=== PATIENT | male | born 1980 | race Caucasian/White ===

== ENCOUNTER 2021-03-20 21:42 | Emergency (ER) | payer OTHER ==
[~2021-03-20] VITALS: Ht 185.4 cm; Wt 122.5 kg
[~2021-03-20 21:42] MED LIST: ALBIPROI INH; CEPH500 PO; HYDACE5 PO; HYDGUAL120 PO; SULTRIDS PO
[2021-03-21] MEDS ORDERED: AMOCLA875 PO (01:36)
[2021-03-21 02:19] LABS: Source, Urine Peds U Bag
[2021-03-21 02:26] LABS: Bilirubin, Urine Neg (Neg); Blood, Urine 5+ (Neg); Glucose Qualitative, Urine Neg (Neg); Ketones, Urine 1+ (Neg); Leukocyte Esterase, Urine 1+ (Neg); Nitrite, Urine Neg (Neg); Protein, Urine 3+ (Neg); Urobilinogen, Urine NORM (Normal)
[2021-03-21 02:35] LABS: Appearance, Urine Hazy (Clear); Color, Urine Amber (P-Yellow)
[2021-03-21 02:36] LABS: Amorphous Light (0-Heavy); Bacteria Few /hpf; Mucus Light (0-Heavy); Red Blood Cells, Urine TNTC /hpf (0-2); Squamous Epithelial Cells Not Seen /hpf (Few)
== END 2021-03-21 02:11 | disposition home or self-care (01) ==
LOC: ER 21:42
PROVIDERS: Emergency Medicine
DX: S31.25XA Open bite of penis, initial encounter (principal); F17.210 Nicotine dependence, cigarettes, uncomplicated; W54.0XXA Bitten by dog, initial encounter
CPT/HCPCS: 81001; 87077; 87086; 87186; 90471; 90714; 99283-25; A9270

== ENCOUNTER 2023-11-18 04:53 | Observation (INO) | payer OTHER ==
[~2023-11-18] VITALS: Ht 190.5 cm; Wt 138.4 kg
[~2023-11-18 04:53] MED LIST changes: +AMOCLA875 PO
[2023-11-18 05:30] LABS: BASOPHILS ABSOLUTE AUTO 0.08 K/mm3 (0.00-0.23); BASOPHILS PERCENT AUTO 1 % (0-2); EOSINOPHILS ABSOLUTE AUTO 0.26 K/mm3 (0.00-0.68); EOSINOPHILS PERCENT AUTO 2 % (0-6); Hematocrit 50.7 % (37.0-53.0); IMMATURE GRAN ABSOLUTE AUTO 0.09 K/mm3 (0.00-0.10); IMMATURE GRAN PERCENT AUTO 1 % (0-1); LYMPHOCYTES ABSOLUTE AUTO 2.24 K/mm3 (0.84-5.20); LYMPHOCYTES PERCENT AUTO 20 % (21-46); MONOCYTES ABSOLUTE AUTO 0.87 K/mm3 (0.16-1.47); MONOCYTES PERCENT AUTO 8 % (4-13); Mean Corpuscular HGB 30.4 pg (26.0-34.0); Mean Corpuscular HGB Conc 33.5 g/dL (31.5-36.5); Mean Corpuscular Volume 91 fL (80-100); Mean Platelet Volume 9.3 fL (9.1-12.4); NEUTROPHILS ABSOLUTE AUTO 7.79 K/mm3 (1.96-9.15); NEUTROPHILS PERCENT AUTO 69 % (41-73); Platelet Count 269 K/mm3 (150-400); RDW Coefficient Variation 12.9 % (11.7-14.2); RDW Standard Deviation 42.6 fL (35.1-46.3); Red Blood Cell Count 5.59 M/mm3 (4.30-5.90); White Blood Cell Count 11.33 K/mm3 (4.00-11.30)
[2023-11-18] MEDS ORDERED: Acetaminophen 325 MG TABLET PO PRN (05:40)
[2023-11-18] MEDS ORDERED: NS 1,000 ML IV SCH (05:40)
[2023-11-18] MEDS ORDERED: FLU VACC TS2024-25(6MOS UP)/PF 45 MCG/0.5 ML SYRINGE IM ONE (05:45)
[2023-11-18] MEDS ORDERED: Acetaminophen 650 MG Supp PR PRN (05:45)
[2023-11-18] MEDS ORDERED: Ondansetron HCl 2 MG / ML 2ML Vial IV PRN (05:45)
[2023-11-18] MEDS ORDERED: Midazolam HCl 1MG / ML 2ML Vial IV SCH (05:50)
[2023-11-18] MEDS ORDERED: CATAPRES0.1 MG PO (06:15)
[2023-11-18] MEDS ORDERED: METOPROLOL TART5010 PO (06:16)
[2023-11-18 06:56] VITALS: BP 151/126
--- NOTE | 2023-11-18 07:39 | NUR ---
PT CAME UP TO FLOOR AND PER REPORT FROM ED PT HAD 190 ML CONTRAST INFILTRATION IN LAC DURING CTA SCAN. SITE IS HARD AND SWOLLEN, WARM COMPRESS IN PLACE. PHARMACY CONSULTED FOR FURHTER INSTRUCTIONS AND SAID TO ELEVATE AND USE WARM COMPRESS AND MASSAGE SITE, THEN IF STINGING OCCURS APPLY COLD COMPRESS. HOSPITALIST NOTIFIED AND AGREES WITH PHARYMACY PLAN.
--- NOTE | 2023-11-18 08:07 | NUR ---
DR ROLDAN TO BEDSIDE. ORDERS TO CONTINUE METOPROLOL TARTRATE 50MG BID. VORB.
[2023-11-18] MEDS ORDERED: Aspirin 81 MG Chew PO SCH (09:00)
[2023-11-18] MEDS ORDERED: Atorvastatin 40 MG Tab PO SCH (09:00)
[2023-11-18] MEDS ORDERED: Metoprolol Tartrate 50 MG Tab PO SCH (09:00)
[2023-11-18 09:50] VITALS: BP 149/113
--- NOTE | 2023-11-18 11:32 | NUR ---
PATIENT HAVING ANXIETY, TACHYCARDIA AND TACHYPNEA AFTER ECHO. EDUCATION PROVIDED REGARDING DEEP, MINDFUL BREATHING. GIVEN FAN AND COOL, WET WASHCLOTH TO APPLY TO FACE.
[2023-11-18 11:45] VITALS: BP 148/112
--- NOTE | 2023-11-18 12:49 | NUR ---
PATIENT TAKING TELE OFF TO TAKE SHOWER WITH ASSISTING AT SIDE.
[2023-11-18 15:24] VITALS: BP 147/112
[2023-11-18 18:09] LABS: U Amphetamine Screen DETECTED; U Barbituate Screen Not Detected; U Benzodiazapine Screen Not Detected; U Buprenorphine Screen Not Detected; U Cannabinoids Screen Not Detected; U Cocaine Screen Not Detected; U Methadone Screen Not Detected; U Methamphetamine Screen DETECTED; U Opiates Screen Not Detected; U Oxycodone Screen Not Detected; U Phencyclidine Screen Not Detected
[2023-11-18 19:43] VITALS: BP 153/113
[2023-11-18] MEDS ORDERED: Lidocaine 4% 1 Patch TOP ONE (20:30)
[2023-11-18] MEDS ORDERED: Nicotine 21 MG PATCH TOP ONE (20:30)
--- NOTE | 2023-11-18 20:48 | NUR ---
DAY SHIFT SUMMARY: A&Ox4. PLEASANT AND COOPERATIVE WITH CARE. CALLS APPROPRIATELY AND IS ABLE TO ADVOCATE NEEDS EFFECTIVELY. AT BEDSIDE MOST OF DAY. PATIENT VERY ANXIOUS, OFTEN CRYING, HE WANTS TO GO HOME. LONG DISCUSSION REGARDING IMPORTANCE OF HAVING CARDIAC ISSUES ADDRESSED THEY ARE QUITE SEVERE. ECHO YIELDED EF OF 20-25% HYPERTENSIVE WITH SBP >100 AND TACHY WITH HR HIGH 130s TODAY. CARDIAC CONSULT PLACED AND WILL CONSULT TONIGHT OR TOMORROW. BNP ELEVATED. LEFT BICEP EDEMATOUS SECONDARY TO CONTRAST INFILTRATION DURING CT TODAY. BED IN LOWEST POSITION. CALL LIGHT WITHIN REACH. REPORT TO ONCOMING RN.
[2023-11-18] MEDS ORDERED: Ibuprofen 400 MG Tab PO SCH (22:00)
[2023-11-18] MEDS ORDERED: Ibuprofen 400 MG Tab PO PRN (22:40)
--- NOTE | 2023-11-19 03:17 | NUR ---
CALLED HOSPITALIST INFORMED HIM OF ELEVATED D. DIMER. HE STATES HE WILL LOOK INTO THE PATIENT'S CHARTS.
--- NOTE | 2023-11-19 04:06 | NUR ---
SHIFT SUMMARY ADMITTED FOR CVA TYPE SYMPTOMS. FULL CODE. AWAITING CARDIOLOGY CONSULT. WE PUT HIM ON 2 LPM O2 WHILE SLEEPING. HE HAS ETHAN, AND IT WAS REPORTED TO ME THAT HE DESATS AT HS. TELEMETRY: TACHY @ 105 (REPORTEDLY UP TO 140'S BPM ON PREVIOUS SHIFT). ECHO SHOWED EF OF 20-25%. I DID CALL HOSPITALIST THIS SHIFT TO REPORT ELEVATED D.DIMER. IT WAS REPORTED THAT HE RECENTLY STARTED METOPROLOL PREVIOUS TO ADMIT. 1 PACK A DAY SMOKER, NICOTINE PATCH IN PLACE. HE IS ANXIOUS.
[2023-11-19 05:29] LABS: BASOPHILS ABSOLUTE AUTO 0.05 K/mm3 (0.00-0.23); BASOPHILS PERCENT AUTO 0 % (0-2); EOSINOPHILS ABSOLUTE AUTO 0.24 K/mm3 (0.00-0.68); EOSINOPHILS PERCENT AUTO 2 % (0-6); Hematocrit 50.8 % (37.0-53.0); Hemoglobin 17.1 g/dL (13.5-17.5); IMMATURE GRAN ABSOLUTE AUTO 0.09 K/mm3 (0.00-0.10); IMMATURE GRAN PERCENT AUTO 1 % (0-1); LYMPHOCYTES ABSOLUTE AUTO 2.26 K/mm3 (0.84-5.20); LYMPHOCYTES PERCENT AUTO 20 % (21-46); MONOCYTES PERCENT AUTO 9 % (4-13); Mean Corpuscular HGB 30.9 pg (26.0-34.0); Mean Corpuscular HGB Conc 33.7 g/dL (31.5-36.5); Mean Corpuscular Volume 92 fL (80-100); Mean Platelet Volume 9.3 fL (9.1-12.4); NEUTROPHILS ABSOLUTE AUTO 7.51 K/mm3 (1.96-9.15); NEUTROPHILS PERCENT AUTO 67 % (41-73); Platelet Count 269 K/mm3 (150-400); RDW Coefficient Variation 12.9 % (11.7-14.2); RDW Standard Deviation 43.5 fL (35.1-46.3); Red Blood Cell Count 5.54 M/mm3 (4.30-5.90); White Blood Cell Count 11.15 K/mm3 (4.00-11.30)
[2023-11-19 05:54] LABS: Albumin, Blood 3.5 g/dL (3.4-5.0); Bilirubin, Total 0.6 mg/dL (0.1-1.0); Calcium, Blood 8.8 mg/dL (8.5-10.1); Globulin, Blood 3.4 g/dL (2.2-4.0); Potassium, Blood 4.5 mmol/L (3.5-5.5); Total Protein, Blood 6.9 g/dL (6.4-8.2)
[2023-11-19 07:50] VITALS: BP 145/104
[2023-11-19] MEDS ORDERED: Diazepam 2 MG Tab PO PRN (08:50)
[2023-11-19] MEDS ORDERED: Nicotine 21 MG PATCH TOP SCH (09:00)
[2023-11-19] MEDS ORDERED: Spironolactone 25 MG Tab PO SCH (09:00)
[2023-11-19] MEDS ORDERED: Enoxaparin 40 MG/0.4 ML SYR SC SCH (09:00)
[2023-11-19] MEDS ORDERED: Empagliflozin 10 MG TAB PO SCH (09:00)
[2023-11-19] MEDS ORDERED: Lisinopril 10 MG Tab PO SCH (09:00)
[2023-11-19] MEDS ORDERED: Metoprolol Succinate 50 MG TABCR PO SCH (09:00)
[2023-11-19] MEDS ORDERED: Lidocaine 4% 1 Patch TOP SCH (09:00)
[2023-11-19 14:01] VITALS: BP 141/102
[2023-11-19] MEDS ORDERED: ACET325 PO (15:47)
[2023-11-19] MEDS ORDERED: ASPI81CH PO (15:47)
[2023-11-19] MEDS ORDERED: DIAZ2 PO (15:48)
[2023-11-19] MEDS ORDERED: ATOR80 PO (15:48)
[2023-11-19] MEDS ORDERED: JARDIANCE10 MG PO (15:49)
[2023-11-19] MEDS ORDERED: LIDO700A20 TOP (15:49)
[2023-11-19] MEDS ORDERED: NICO21TP TOP (15:49)
[2023-11-19] MEDS ORDERED: Prinivil10 MG PO (15:49)
[2023-11-19] MEDS ORDERED: SPIR25 PO (15:49)
--- NOTE | 2023-11-19 17:14 | NUR ---
PT RESTING QUIETLY AT START OF SHIFT. DIFFICULT TO WAKE AT TIMES. SLEPT MOST OF DAY WITH FAMILY IN . DR DALLAS HERE AT START OF SHIFT TO SEE PT. MEDICATIONS ADJUSTED AND PT CLEARED BY CARDIOLOGY TO GO HOME. DR ROLDAN THEN HERE TO SEE PT AND DISCUSS PLAN OF CARE. PT STARTED ON NEW MEDICATIONS AND ENCOURAGED TO FOLLOW THRU WITH COMPLIANCE AT D/C. PT ALSO EDUCATED TO STOP USING METH. DR FISHER THEN PLACED D/C ORDERS. MEDS FAXED TO [facility] PER PT REQUEST. HARD SCRIPT GIVEN FOR VALIUM. D/C INSTRUCTIONS REVIEWED WITH PT; VERBALIZED UNDERSTANDING. PT ASSISTED OUT TO CAR VIA W/C BY INSTRUCTIONAL SYSTEMS SPECIALIST WITH S/O AT SIDE TAKING ALL BELONGINGS.
== END 2023-11-19 16:16 | disposition home or self-care (01) ==
LOC: ER 04:53 → MEDS 04:54 → ENPENDDIS 11-19 15:57 → MEDS 11-19 16:16
PROVIDERS: Emergency Medicine; Internal Medicine; Registered Nurse; ADMIT Student in an Organized Health Care Education/Training Program
DX: G45.9 Transient cerebral ischemic attack, unspecified (principal); I42.9 Cardiomyopathy, unspecified; I10 Essential (primary) hypertension; E78.5 Hyperlipidemia, unspecified; E66.01 Morbid (severe) obesity due to excess calories; Z88.1 Allergy status to other antibiotic agents; Z79.899 Other long term (current) drug therapy; Z79.82 Long term (current) use of aspirin; S40.812A Abrasion of left upper arm, initial encounter; X58.XXXA Exposure to other specified factors, initial encounter
CPT/HCPCS: 36415; 70450; 70496; 70498; 80053; 82947; 83036; 83880; 85025; 85379; 92610; 93005; 93010; 96372; 97116; 97161; 99285-25; A9270; C8929; G0378; J1650; J2250; J7030; Q9957

== ENCOUNTER 2024-03-06 07:18 | Day surgery (SDC) | payer OTHER ==
[2024-03-06] VITALS (7 sets, daily range): BP systolic 120–145; BP diastolic 85–131
[~2024-03-06] VITALS: Ht 185.4 cm; Wt 133.3 kg
[~2024-03-06 07:18] MED LIST changes: +ACET325 PO; +ASPI81CH PO; +ATOR80 PO; +CATAPRES0.1 MG PO; +DIAZ2 PO; +FARXIGA10 MG PO; +JARDIANCE10 MG PO; +LIDO700A20 TOP; +METOPROLOL TART5010 PO; +NICO21TP TOP; +Prinivil10 MG PO; +SPIR25 PO
[2024-03-06] MEDS ORDERED: Verapamil HCL 2.5 MG/ML 2ML Injection ONE (07:27)
[2024-03-06] MEDS ORDERED: NS 250 ML IV ONE (07:28)
[2024-03-06] MEDS ORDERED: NS 1,000 ML IV ONE (07:28)
[2024-03-06] MEDS ORDERED: Heparin Sodium 1000 Units/ML 10ML MDV ONE (07:28)
[2024-03-06] MEDS ORDERED: Nitroglycerin 2 MG/20 ML BTL ONE (07:28)
[2024-03-06] MEDS ORDERED: FentaNYL Citrate 50 MCG/ML 2 ML Injection ONE (07:35)
[2024-03-06] MEDS ORDERED: Midazolam HCl 1MG / ML 2ML Vial ONE (07:35)
[2024-03-06] MEDS ORDERED: NS 500 ML IV ONE (07:36)
--- NOTE | 2024-03-06 10:04 | NUR ---
PT BACK TO RECOVERY ROOM. FAMILY AT BEDSIDE. PT SITTING UP IN RECLINER, 13 CC IN TR BAND TO R WRIST.
--- NOTE | 2024-03-06 11:00 | NUR ---
PT DENIES SNACKS. FAMILY AT BEDSIDE. TR BAND IN PLACE NO BLEEDING OR HEMATOMA NOTED.
--- NOTE | 2024-03-06 11:23 | NUR ---
tr band fully deflated.
--- NOTE | 2024-03-06 12:30 | NUR ---
PT VERBALIZE D/C INSTRUCTIONS. IV D/C CATHETER INTACT. CLOTH DOT PLACED ON R WRIST. PT WHEELED OUT OF DEPT WITH D/C INSTRUCTIONS.
== END 2024-03-06 13:09 | disposition home or self-care (01) ==
LOC: MHTC 07:18
DX: I42.0 Dilated cardiomyopathy (principal); I25.10 Atherosclerotic heart disease of native coronary artery without angina pectoris; I11.0 Hypertensive heart disease with heart failure; I50.22 Chronic systolic (congestive) heart failure; E78.5 Hyperlipidemia, unspecified; E66.01 Morbid (severe) obesity due to excess calories; Z68.38 Body mass index [BMI] 38.0-38.9, adult; Z79.82 Long term (current) use of aspirin; Z79.899 Other long term (current) drug therapy; Z88.1 Allergy status to other antibiotic agents
CPT/HCPCS: 76937; 93456; C1769; C1887; C1894; J1644; J2250; J3010; J7030; J7040; J7050; Q9967